=== PATIENT | female | born 1950 | race Caucasian/White ===

== ENCOUNTER → 2022-01-07 | Outpatient (CLI) | payer MEDICARE ==
[~2022-01-07] MED LIST: BUPR15TASR PO; LANS30CA PO; LISI10TA22 PO; MIRT-62 PO; MIRT1TAB17 PO; PARO5TAB PO; SIMV40TA20 PO
== END ==
LOC: M WHC 13:36
PROVIDERS: ATTEND Internal Medicine Hematology & Oncology
DX: Z12.31 Encounter for screening mammogram for malignant neoplasm of breast (principal); Z78.0 Asymptomatic menopausal state; Z92.29 Personal history of other drug therapy